=== PATIENT | female | born 1980 | race Caucasian/White ===

== ENCOUNTER 2018-02-24 06:05 | Inpatient (IN) | payer OTHER ==
[~2018-02-24] VITALS: Ht 167.6 cm; Wt 107.0 kg
[~2018-02-24 06:05] MED LIST: COLACE100 MG PO; CYCLOBENZAPRINE10 M1 PO; DICLOFENAC SODI75 M2 PO; PERCOCET 325 MG-5 MG PO
--- NOTE | 2018-02-24 07:56 | History & Physical Pre-Op ---
General Information and HPI History of Present Illness: 37-year-old 5 para 2021 at 39 weeks gestation with a history of previous section with adequate care. On who desires permanent sterilization we have reviewed the risks and benefits of tubal ligation i.e. 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 Surgical History Pertinent Surgical History: non-contributory Past Family/Social History Psychosocial History Smoking Status: Former Smoker Review of Systems Review of Systems: -13 point review of systems as stated in the HPI Exam & Diagnostic Data Last 24 Hrs of Vital Signs/I&O Intake & Output 02/24 0800 02/24 0000 02/23 1600 Intake Total Output Total Balance Patient 236 lb Weight Physical Exam: Pleasant pale white female no apparent distress HEENT anicteric Lungs clear Heart S1 and S2 Abdomen gravid estimated weight 3600 g Pelvic long closed Extremities +1 edema negative reflexes negative Homans Assessment/Plan As Ranked By This Provider Problem List: 1. Attending MD Review Statement Attending Statement Attending MD Statement: examined this patient
--- NOTE | 2018-02-24 08:51 | Operative Report ---
Operative/Inv Procedure Report Surgery Date: 02/24/18 Name of Procedure: Repeat low flap transverse section via Pfannenstiel skin incision lysis of adhesions bilateral tubal ligation [place] technique Pre-Operative Diagnosis: Multiparity previous section term Post-Operative Diagnosis: Same Estimated Blood Loss: 500 Surgeon/Patternmaker Metal Bench: Hossein PRYOR,Angeles Mitchell and Dr. Landa Anesthesia: block Operative/Procedure Note Note: Procedure note patient was taken the operating room placed prone position after adequate anesthesia patient placed in dorsolithotomy position vagina was prepped and draped so fashion [place] was placed patient was checked for adequate anesthesia for block as well as on timeout was performed on through an old Pfannenstiel skin incision skin was cut carried down to rectus fascia with second knife was carried down I nicked I dissected bluntly as well as sharply on since removed from the field peritoneum was opened low blade the [place] was placed and lower and incision the visceral peritoneum of the uterus was dissected anteriorly to develop a bladder flap in the lower uterine segment the uterus was nicked entered with the back to knife dissected bluntly I at this point the infant was delivered over the abdominal wall after advancements removed from the field again cord was doubly clamped and cut cord was around the neck 1 was reducible infant was handed to enterprise resource planning consultant was waiting delivering to aid in resuscitation. Placenta was delivered manually wiped clean with 2 wet dry laps on the uterus was oversewn running locking suture of 0 intravenous Pitocin as well as intramyometrial Pitocin was used for uterine contractility which was apparent on interrupted [id number] were used to control sulcus bleeding at this point on the right tube was picked up with [place] carried to its fimbriated end on suture-ligated 3 cut and the endosalpinx was Bovie coagulated left tube was picked up carried to its fimbriated end the isthmus was clamped oversewn 3 cut and the endosalpinx was Bovie coagulated hemostasis was apparent the tubes were irrigated with copious amounts warm saline to knowledge and checked for hemostasis the abdomen was irrigated copious amounts warm saline until clear the uses turned to abdominal cavity the pedicles were examined for the tubes and found to be hemostatic sutures intact I at this point the eye incision was found to be hemostatic the peritoneum was reapproximated 0 fascia was reapproximated to continue sutures #1 skin was reapproximated luzma at the end the case the counts were correct the urine was clear mom and infant were transferred recovery room awake alert Findings: Viable female 5 lbs. 12 oz. home tubes and ovaries bilaterally otherwise normal anatomy
[2018-02-24 10:52] VITALS: BP 122/62
--- NOTE | 2018-02-25 08:17 | PN- Post Delivery/GYN ---
Subjective Subjective: NO COMPLAINTS Objective Last 24 Hrs of Vital Signs/I&O Vital Signs Date Time Temp Pulse Resp B/P B/P Pulse O2 O2 Flow FiO2 Mean Ox Delivery Rate 02/24 1052 122/62 Physical Exam: PE THIN WF IN NAD HEENT PERRLA EOMI ABD SOFT NT INCISION CDI EXT -EDEMA -HOMANS Assessment/Plan Assessment/Plan ASSESS S/P C/S PLAN CHECK CBC ADVANCE DIET ADVANCE AMBULATION
[2018-02-25 09:38] LABS: ABSOLUTE BASOPHIL COUNT 0 /CUMM (0.0-0.2); ABSOLUTE EOSINOPHIL COUNT 0.2 /CUMM (0.0-0.7); ABSOLUTE GRANULOCYTE CT 6.9 /CUMM (1.4-6.5); ABSOLUTE MONOCYTE COUNT 0.4 /CUMM (0.10-0.60); BASOPHIL % 0.1 % (0.0-2.0); EOSINOPHIL % 1.7 % (0-5); GRANULOCYTE % 72.8 % (42.2-75.2); HEMATOCRIT 39.2 % (37-47); MEAN CORPUSCULAR HGB 29.1 PG (27.0-31.0); MEAN CORPUSCULAR HGB CONC 32.6 G/DL (33.0-37.0); MEAN CORPUSCULAR VOLUME 89.3 FL (81.0-99.0); MEAN PLATELET VOLUME 9.1 FL (7.4-10.4); PLATELET COUNT 234 /CUMM (130-400); RBC DISTRIBUTION WIDTH 14.6 % (11.5-14.5); RED BLOOD CELL CT 4.38 /CUMM (4.20-5.40); WHITE BLOOD CELL COUNT 9.5 /CUMM (4.8-10.8)
[2018-02-26] MEDS ORDERED: PERCOCET 5-3251 EACH PO (09:19)
[2018-02-26] MEDS ORDERED: IBUPROFEN800 M1 PO (09:19)
--- NOTE | 2018-02-26 09:27 | PN- Post Delivery/GYN ---
Subjective Subjective: NO COMPLAINTS Objective Last 24 Hrs of Vital Signs/I&O PER CHART Physical Exam: PE THIN WF IN NAD ABD SOFT NT INCISON CDI EXT-EDEMA -HOMANS Assessment/Plan Assessment/Plan ASSESS S\P C\S PLAN CONT PPC
== END 2018-02-27 12:10 | DRG 766 ==
LOC: GNO 06:05
PROVIDERS: Specialist
PROC: 0UB70ZZ Excision of Bilateral Fallopian Tubes, Open Approach (ICD-10-PCS; principal; 2018-02-24)
PROC: 10D00Z1 Extraction of Products of Conception, Low, Open Approach (ICD-10-PCS; principal; 2018-02-24)
DX: O34.211 Maternal care for low transverse scar from previous cesarean delivery (principal); N85.8 Other specified noninflammatory disorders of uterus; O69.81X0 Labor and delivery complicated by cord around neck, without compression, not applicable or unspecified; Z3A.39 39 weeks gestation of pregnancy; Z37.0 Single live birth; Z30.2 Encounter for sterilization
CPT/HCPCS: GNOS; 36415; 87086; 88302; 88307; J0690; J1200; J1650; J1885; J7120